=== PATIENT | female | born 1945 | race Caucasian/White ===

== ENCOUNTER → 2018-09-13 | Outpatient (CLI) | payer OTHER ==
[~2018-09-13] MED LIST: AMLODIPINE BESYL5 MG PO; B-100 COMPLEX1 EAC1 PO; BENADRYL25 MG PO; BIOTIN1 M1 PO; CALCIUM + D SO1 EACH PO; FISH OIL 1,0001 EAC5 PO; GLUCOSAMINE &1 EAC1 PO; HYDROCHLOROTHIA25 M1 PO; MULTIVITAMINS1 EAC7 PO; NOLVADEX20 MG PO; NORCO 5-325 TA1 EACH PO; NORVASC10 MG PO; OMEGA-3100 MG PO; VITAMIN E100 UNI2 PO
== END ==
LOC: RAD 11:24
DX: Z12.31 Encounter for screening mammogram for malignant neoplasm of breast (principal); Z85.3 Personal history of malignant neoplasm of breast; Z90.11 Acquired absence of right breast and nipple